=== PATIENT | female | born 1950 | race Hispanic/Latino ===

== ENCOUNTER 2019-03-29 19:52 | Emergency (ER) | payer MEDICARE ==
--- NOTE | 2019-03-29 20:08 | Emergency Department Report ---
ED General Adult HPI - General Stated complaint: LOW BLOOD SUGAR Time Seen by Provider: 03/29/19 19:52 Source: patient, EMS Mode of arrival: Stretcher Limitations: No Limitations - History of Present Illness Initial comments: Patient is a 68-year-old female that presents emergency room with complaints of hypoglycemia. Patient states her sugar dropped because she took 2 much insulin for the amount of food she ate. Patient states she takes NovoLog with meals and Lantus every morning. Patient is also taking metformin for her diabetes. Patient denies any pain. Patient denies trauma. Patient denies falls. Patient's sugar was 29 when EMS arrived and she was given oral glucose. Patient denies chest pain shortness of breath. -: Sudden Consistency: constant Improves with: medication, rest Worsens with: none Associated Symptoms: denies other symptoms. denies: confusion, chest pain, cough, diaphoresis, fever/chills, headaches, loss of appetite, malaise, nausea/vomiting, rash, seizure, shortness of breath, syncope, weakness Treatments Prior to Arrival: other - Related Data Allergies Allergy/AdvReac Type Severity Reaction Status Date / Time No Known Allergies Allergy Verified 03/29/19 21:53 ED Review of Systems ROS: Stated complaint: LOW BLOOD SUGAR Other details as noted in HPI Constitutional: denies: chills, fever Eyes: denies: eye pain, eye discharge, vision change ENT: denies: ear pain, throat pain Respiratory: denies: cough, shortness of breath, wheezing Cardiovascular: denies: chest pain, palpitations Endocrine: no symptoms reported Gastrointestinal: denies: abdominal pain, nausea, diarrhea Genitourinary: denies: urgency, dysuria, discharge Musculoskeletal: denies: back pain, joint swelling, arthralgia Skin: denies: rash, lesions Neurological: denies: headache, weakness, paresthesias Psychiatric: denies: anxiety, depression Hematological/Lymphatic: denies: easy bleeding, easy bruising ED Past Medical Hx - Past Medical History Previous Medical History?: Yes Hx Hypertension: Yes Hx Diabetes: Yes Hx Renal Disease: Yes (baseline cr 1.7) - Surgical History Past Surgical History?: No - Family History Family history: no significant - Social History Smoking Status: Never Smoker Substance Use Type: None ED Physical Exam - General Limitations: No Limitations General appearance: alert, in no apparent distress - Head Head exam: Present: atraumatic, normocephalic - Eye Eye exam: Present: normal appearance, PERRL Pupils: Present: normal accommodation - ENT ENT exam: Present: mucous membranes moist - Neck Neck exam: Present: normal inspection - Respiratory Respiratory exam: Present: normal lung sounds bilaterally. Absent: respiratory distress, wheezes, rales - Cardiovascular Cardiovascular Exam: Present: regular rate, normal rhythm. Absent: systolic murmur, diastolic murmur, rubs, gallop - GI/Abdominal GI/Abdominal exam: Present: soft, normal bowel sounds. Absent: distended, tenderness, guarding - Rectal Rectal exam: Present: deferred - Extremities Exam Extremities exam: Present: normal inspection - Back Exam Back exam: Present: normal inspection - Neurological Exam Neurological exam: Present: alert, oriented X3 - Psychiatric Psychiatric exam: Present: normal affect, normal mood - Skin Skin exam: Present: warm, dry, intact, normal color. Absent: rash ED Course Vital Signs 03/29/19 03/29/19 03/29/19 20:03 20:15 20:23 Temperature 98.1 F Pulse Rate 79 Respiratory 19 Rate Blood Pressure 114/61 116/71 O2 Sat by Pulse 97 98 97 Oximetry 03/29/19 03/29/19 03/29/19 20:30 20:31 20:45 Temperature Pulse Rate Respiratory 18 Rate Blood Pressure 139/114 148/68 O2 Sat by Pulse 97 99 Oximetry 03/29/19 03/29/19 03/29/19 21:00 21:15 21:30 Temperature Pulse Rate Respiratory Rate Blood Pressure 117/65 117/65 117/54 O2 Sat by Pulse 99 99 100 Oximetry 03/29/19 03/29/19 03/29/19 21:45 22:00 22:15 Temperature Pulse Rate Respiratory Rate Blood Pressure 117/54 123/64 123/64 O2 Sat by Pulse 99 99 99 Oximetry 03/29/19 03/29/19 03/29/19 22:30 22:45 23:00 Temperature Pulse Rate Respiratory Rate Blood Pressure 116/62 116/62 119/59 O2 Sat by Pulse 99 99 98 Oximetry 03/29/19 03/29/19 03/29/19 23:15 23:30 23:45 Temperature Pulse Rate Respiratory Rate Blood Pressure 119/59 118/64 118/64 O2 Sat by Pulse 98 97 99 Oximetry 03/30/19 00:01 Temperature Pulse Rate Respiratory Rate Blood Pressure 139/66 O2 Sat by Pulse 100 Oximetry - Reevaluation(s) Reevaluation #1: Initial evaluation done. Patient will be given by mouth intake and have her labs done and sugar checked 03/29/19 20:08 Reevaluation #2: Patient states she is feeling fine. Patient tolerated by mouth intake. 03/29/19 23:39 Reevaluation #3: I discussed all results with patient. I discussed plan of care outpatient. Patient agrees with plan of care. Patient given discharge instructions. Patient voiced understanding of discharge instructions. Patient agrees with plan of care. 03/30/19 00:02 ED Medical Decision Making - Lab Data Result diagrams: 03/29/19 20:18 03/29/19 22:01 - Medical Decision Making Patient is a 68-year-old female that presents with complaints of hyperglycemia. Patient's blood sugar has improved while in the ER. Patient tolerated by mouth intake. Patient took too much insulin for the amount of food that she ate tonight. Patient denies any physical complaints. Patient's past medical history includes hypertension, diabetes and chronic kidney disease. Patient's baseline creatinine is 1.7. Patient instructed to increase water. Patient to eat regularly. Patient given discharge instructions. Patient was understanding of discharge instructions. - Differential Diagnosis hypoglycemia. Miss meal. Critical Care Time: Yes Critical care attestation.: If time is entered above; I have spent that time in minutes in the direct care of this critically ill patient, excluding procedure time. Critical Care Time: 35 minutes ED Disposition Clinical Impression: Hypoglycemia Diabetes Qualifiers: Diabetes mellitus type: type 2 Diabetes mellitus mcfp insulin use: with mcfp use Diabetes mellitus complication status: without complication Qualified Code(s): E11.9 - Type 2 diabetes mellitus without complications CKD (chronic kidney disease) Qualifiers: Chronic kidney disease stage: unspecified stage Qualified Code(s): N18.9 - Chronic kidney disease, unspecified Disposition: TO HOME OR SELFCARE Is pt being admited?: No Does the pt Need Aspirin: No Condition: Stable Instructions: Diabetic Hypoglycemia (ED), Diabetes Mellitus Type 2 in Adults (ED) Additional Instructions: Patient follow up with primary care in 2-3 days. Patient to eat regularly. Patient to continue all medications. Patient to return to ER if condition worsens. Patient to increase water. Referrals: ALEKSANDRA ETIENNE MD [Primary Care Provider] - 2-3 Days Time of Disposition: 00:03
[2019-03-29 20:27] LABS: Hematocrit 36.3 % (30.3-42.9); Hemoglobin 12.1 gm/dl (10.1-14.3); Mean Corpuscular HGB Conc 33 % (30-34); Mean Corpuscular Volume 92 fl (79-97); Platelet Count 241 K/mm3 (140-440); Red Blood Count 3.94 M/mm3 (3.65-5.03); Red Cell Distribution Width 15.5 % (13.2-15.2)
[2019-03-29 21:50] LABS: Blood Urea Nitrogen TNR mg/dL (7-17)
[2019-03-29 21:51] LABS: BUN/Creatinine Ratio TNR; Calcium TNR mg/dL (8.4-10.2)
[2019-03-29 21:52] LABS: Alanine Aminotransferase TNR units/L (7-56); Albumin TNR g/dL (3.9-5); Hemolysis Index TNR
[2019-03-29 22:37] LABS: Albumin 3.1 g/dL (3.9-5); Calcium 8.7 mg/dL (8.4-10.2)
[2019-03-30 00:29] VITALS: BP 139/66
== END 2019-03-30 00:20 | disposition home or self-care (01) ==
LOC: ED 19:52
DX: E11.649 Type 2 diabetes mellitus with hypoglycemia without coma (principal); I12.9 Hypertensive chronic kidney disease with stage 1 through stage 4 chronic kidney disease, or unspecified chronic kidney disease; E11.22 Type 2 diabetes mellitus with diabetic chronic kidney disease; N18.9 Chronic kidney disease, unspecified; Z79.4 Long term (current) use of insulin
CPT/HCPCS: 36415; 80053; 82962; 85027; 99291

== ENCOUNTER 2019-05-17 07:49 | Emergency (ER) | payer MEDICARE ==
--- NOTE | 2019-05-17 08:12 | Emergency Department Report ---
HPI - General Time Seen by Provider: 05/17/19 08:04 - HPI HPI: 68 yo C F presents to the ED via EMS from home with low blood sugar after she was hard to wake this morning. She lives with her sister who had difficulty waking her and then called EMS. EMS found the patient to have low blood sugar of 21 and was started on a D10 drip. Her accucheck upon arrival here was about 250. She doesn't history of diabetes on both pills and insulin, hypertension and chronic kidney disease. The patient is on 500 mg of metformin twice daily but last took this yesterday morning. She takes Lantus 25 units and last night she did NovoLog for a blood sugar of 260. The patient was here at the end of March for a similar complaint/presentation. She is currently awake and alert, oriented, with no complaints. ED Past Medical Hx - Past Medical History Hx Hypertension: Yes Hx Diabetes: Yes Hx Renal Disease: Yes (baseline cr 1.7) - Surgical History Additional Surgical History: thyroidectomy - Social History Smoking Status: Never Smoker Substance Use Type: None - Medications Home Medications: Home Medications Medication Instructions Recorded Confirmed Last Taken Type Ascorbic Acid 500 mg PO TID 05/17/19 05/17/19 Unknown History Cholecalciferol (Vitamin D3) 1,000 units PO DAILY 05/17/19 05/17/19 Unknown History Ferric Sulfate 325 mg PO TID 05/17/19 05/17/19 Unknown History Folic Acid 1 mg PO DAILY 05/17/19 05/17/19 Unknown History Omeprazole 40 mg PO DAILY 05/17/19 05/17/19 Unknown History [id number] 500 mg PO DAILY 05/17/19 05/17/19 Unknown History Rivaroxaban 20 mg PO DAILY 05/17/19 05/17/19 Unknown History metFORMIN 1,000 mg PO BID 05/17/19 05/17/19 Unknown History ED Review of Systems ROS: Stated complaint: LOW BLOOD SUGAR Other details as noted in HPI Comment: All other systems reviewed and negative Constitutional: denies: chills, fever Eyes: denies: eye pain, vision change Respiratory: denies: cough, shortness of breath Cardiovascular: denies: chest pain, palpitations Gastrointestinal: denies: abdominal pain, vomiting Musculoskeletal: denies: back pain, arthralgia Neurological: other (unresponsive episode). denies: headache Physical Exam - Physical Exam Physical Exam: GENERAL: The patient is well-developed well-nourished. HENT: Normocephalic. Atraumatic. Patient has moist mucous membranes. EYES: Extraocular motions are intact. Pupils equal reactive to light bilaterally. NECK: Supple. Trachea is midline. CHEST/LUNGS: Clear to auscultation. There is no respiratory distress noted. HEART/CARDIOVASCULAR: Regular. There is no tachycardia. There is no murmur. ABDOMEN: Abdomen is soft, nontender. Patient has normal bowel sounds. There is no abdominal distention. SKIN: Skin is warm and dry. NEURO: The patient is awake, alert, and oriented. The patient is cooperative. The patient has no focal neurologic deficits. Normal speech. MUSCULOSKELETAL: There is no tenderness or deformity. There is no evidence of acute injury. ED Medical Decision Making - Lab Data Result diagrams: 05/17/19 08:13 05/17/19 08:13 - EKG Data -: EKG Interpreted by [facility] EKG shows normal: sinus rhythm, axis, intervals, QRS complexes (Q waves to the septal leads), ST-T waves Rate: normal - EKG Data When compared to previous EKG there are: previous EKG unavailable Interpretation: other (sinus rhythm, normal axis, normal intervals, Q waves to the septal leads) - Medical Decision Making Patient presents after having a hypoglycemic unresponsive episode this morning when she had a blood sugar of 21. Since being in the emergency department she has been awake, alert, oriented and in no acute distress. Her blood sugar upon presentation here was about 250. Over the next few hours it slowly crept down but the patient did not have any food or further sugar intake. She was eventually fed a lunch tray and her blood sugar went back up to about 250. She has been reevaluated multiple times over multiple hours and has remained stable. Her vital signs are stable throughout her ED course as well. EKG did not show any signs of ST elevation CT or dysrhythmia. The patient will be discharged home to follow up with primary care and says that [facility] in her diabetes medications so that she does not have the hypoglycemic issues again. She has also been given a referral for nephrology to follow up regarding her acute on chronic kidney disease. She will call 911 or return to the closest emergency Department with any further concerns, worsening of symptoms, or with any acute distress. Critical Care Time: No Critical care attestation.: If time is entered above; I have spent that time in minutes in the direct care of this critically ill patient, excluding procedure time. ED Disposition Clinical Impression: Hypoglycemia CKD (chronic kidney disease) Qualifiers: Chronic kidney disease stage: unspecified stage Qualified Code(s): N18.9 - Chronic kidney disease, unspecified Disposition: DC- TO HOME OR SELFCARE Is pt being admited?: No Condition: Stable Instructions: Diabetic Hypoglycemia (ED) Additional Instructions: Please follow-up with your primary care physician in the next few days. I'm also giving you a referral for a local short haul driver, Dr. Johnston, to follow up regarding your chronic kidney disease. Please check your blood sugar regularly and keep a blood sugar log. Return to the emergency Department with any worsening of your symptoms or any acute distress. Referrals: PRIMARY MD ELMO [Primary Care Provider] - 2-3 Days Time of Disposition: 13:47
[2019-05-17 08:36] LABS: Basophils % (Auto) 0.2 % (0.0-1.8); Eosinophils # (Auto) 0.1 K/mm3 (0.0-0.4); Eosinophils % (Auto) 0.7 % (0.0-4.3); Hematocrit 31.8 % (30.3-42.9); Hemoglobin 10.5 gm/dl (10.1-14.3); Lymphocytes # (Auto) 1.1 K/mm3 (1.2-5.4); Mean Corpuscular HGB Conc 33 % (30-34); Mean Corpuscular Volume 93 fl (79-97); Monocytes # (Auto) 0.7 K/mm3 (0.0-0.8); Monocytes % (Auto) 7.7 % (0.0-7.3); Platelet Count 192 K/mm3 (140-440); Red Blood Count 3.42 M/mm3 (3.65-5.03); Red Cell Distribution Width 16.7 % (13.2-15.2)
[2019-05-17 08:54] LABS: Albumin 2.6 g/dL (3.9-5); Calcium 8.1 mg/dL (8.4-10.2)
[2019-05-17 09:34] VITALS: BP 95/53
== END 2019-05-17 14:27 | disposition home or self-care (01) ==
LOC: ED 07:49
DX: I12.9 Hypertensive chronic kidney disease with stage 1 through stage 4 chronic kidney disease, or unspecified chronic kidney disease (principal); E11.649 Type 2 diabetes mellitus with hypoglycemia without coma; E11.22 Type 2 diabetes mellitus with diabetic chronic kidney disease; N18.9 Chronic kidney disease, unspecified; Z79.4 Long term (current) use of insulin; E89.0 Postprocedural hypothyroidism; Z79.899 Other long term (current) drug therapy; Z88.8 Allergy status to other drugs, medicaments and biological substances
CPT/HCPCS: 36415; 80053; 82962; 84443; 85025; 93005; 93010; 99284